=== PATIENT | female | born 1975 | race Caucasian/White ===

== ENCOUNTER 2020-05-30 09:40 | Outpatient (REF) | payer OTHER, SELFPAY ==
[2020-05-31 09:02] LABS: BV Int Neg Control Negative (Negative); BV Int Pos Control Positive (Positive)
== END 2020-05-30 09:41 | disposition home or self-care (01) ==
LOC: HO.LAB 09:40
PROVIDERS: PCP Internal Medicine; Visit Provider Advanced Practice Midwife
DX: Z01.419 Encounter for gynecological examination (general) (routine) without abnormal findings (principal)
CPT/HCPCS: 87480; 87510; 87660

== ENCOUNTER 2021-06-04 09:34 | Outpatient (REF) | payer OTHER, SELFPAY ==
[2021-06-05 15:43] LABS: BV Int Neg Control Negative (Negative); BV Int Pos Control Positive (Positive)
== END 2021-06-04 09:35 | disposition home or self-care (01) ==
LOC: HO.LAB 09:34
PROVIDERS: PCP Internal Medicine; Visit Provider Advanced Practice Midwife
DX: Z01.411 Encounter for gynecological examination (general) (routine) with abnormal findings (principal); N89.8 Other specified noninflammatory disorders of vagina; L68.0 Hirsutism
CPT/HCPCS: 87480; 87510; 87660

== ENCOUNTER 2022-07-01 08:59 | Outpatient (REF) | payer OTHER, SELFPAY ==
[2022-07-02 22:23] LABS: HPV mRNA E6/E7 rflx Not Detected (Not Detected)
== END 2022-07-01 09:00 | disposition home or self-care (01) ==
LOC: HO.LNP 08:59
PROVIDERS: PCP Internal Medicine; Visit Provider Advanced Practice Midwife
DX: Z01.419 Encounter for gynecological examination (general) (routine) without abnormal findings (principal); Z11.51 Encounter for screening for human papillomavirus (HPV); L68.0 Hirsutism
CPT/HCPCS: 87624; 88142

== ENCOUNTER 2023-06-16 09:33 | Outpatient (AMB) | payer OTHER, SELFPAY ==
--- NOTE | 2023-06-16 09:35 | A.OFFVIS_ITS ---
Intake Vital Signs 06/16/23 09:37 Height 5 ft 6 in Weight 225 lb BMI 36.3 BP 122/86 Intake Visit Reasons: Bleeding Intake Note: pt c/o bleeding with Mirena since 05/17/23 on and off Medical Records Clerk: Medical Records Clerk Present (Haley) Allergies No Known Allergies Allergy (Verified 06/16/23 09:37) Is last menstrual period known: Yes Last menstrual period: 05/17/23 HPI HPI Comments History of Present Illness Details She reports bleeding in ongoing since 05/17/23, less volume-light pink, then increased lst Wednesday, now slowing, the pain on the right has resolved. Self treated for yeast 3.5wks. ago, feels better. IUD placed for cycle control, inserted 2017, she does not usually have a menses at all. Concerned re: bloating and fullness after eating. She repots going to [facility] on 05/31/23 for evaluation-all STD bloodwork and cultures were negative. [facility] Surgical History Hx of section Family History Maternal Grandmother Breast cancer Social History Alcohol intake: current Alcohol intake frequency: a few times a month Patient Tobacco Use Status: Never used Tobacco Sexual orientation: Straight/Heterosexual Gender identity: Female Female Reproductive History Menstrual Age of Menarche: 16 Date of last menstrual period: 05/17/23 control method: progestin IUCD (mirena 07/12/17) Total pregnancies: 3 Full term: 3 Number of Living Children: 3 Date of last pap smear: 07/01/22 (neg pap and hpv) History of abnormal pap smear: Yes (hx abn pap and colpo) Review of Systems Const All systems reviewed & are unremarkable except as noted in HPI and below Physical Exam Vital Signs: Last Vital Signs BP 122/86 06/16/23 09:37 BMI result Body Mass Index 36.3 Const General: cooperative, healthy appearing and no acute distress Orientation/consciousness: patient oriented x3 GI Inspection: Yes normal to inspection Palpation (GI): Soft to palpation and Other GI palpation findings present (Nontender) Rectal Exam - Female: visual inspection normal General: Yes bladder normal to palpation External Female Exam: normal appearance of the urethra Speculum Exam - Vagina: normal appearance of the vagina, normal palpation, normal vaginal discharge and vaginal bleeding Speculum Exam - Cervix: normal appearance of the cervix, normal palpation and Other cervical findings present (IUD strings at the os) Bimanual exam- vagina & uterus: normal bimanual exam, normal palpation, uterine size normal, bladder normal to palpation, normal palpation, uterine shape normal and non-tender Bimanual Exam- Adnexa, other: normal adnexae OB/external & speculum: vaginal bleeding Neuro General: patient oriented x3 Results AMB Test Urine AMB Test Urine Negative Last Edit by WILLOW Weber on 06/16/23 09:46 Results Reviewed Results Reviewed: Laboratory Last Values Tst Clinic Negative 06/16/23 09:45 Assessment & Plan Assessment & Plan (1) IUD surveillance: Code(s): Z30.431 - Encounter for routine checking of intrauterine contraceptive device (2) Pelvic pain: Code(s): R10.2 - Pelvic and perineal pain Plan Discussed: Plan to obtain ultrasound, [facility] records, IUD exchange for Mirena at ultrasound follow-up advised if using it for heavy menstrual bleeding it would be only good therapeutically for 5 years. She is concerned about taking extra time off from work she does have her annual booked for July 14 2023. Advised separate appointment for the Mirena exchange in ultrasound follow-up, discussed pre-procedure medication with 3 Advil take it with food and hydrating well the day of her procedure. All of her questions and concerns were addressed to the best of my ability and shared decision making. She is agreeable to the plan of care. This note is constructed using voice recognition software. While every effort has been made to ensure accuracy, twisting department end finder errors may have been included. Orders: Orders AMB HCG Urine Test Today N92.1 - Excessive and frequent menstruation with irregular cycle, Z97.5 - Presence of (intrauterine) contraceptive device US pelvic and transvaginal Today R10.2 - Pelvic and perineal pain, Z30.431 - Encounter for routine checking of intrauterine contraceptive device Coding Level of Care Code Est Pt Level 4 (76878) Diagnoses IUD surveillance Z30.431 Pelvic pain R10.2
[2023-06-16 09:37] VITALS: BP 122/86; BMI 36.3
== END 2023-06-16 10:04 | disposition home or self-care (01) ==
LOC: HO.HWS 09:33
PROVIDERS: PCP Internal Medicine; Visit Provider Advanced Practice Midwife
DX: N92.1 Excessive and frequent menstruation with irregular cycle (principal); Z97.5 Presence of (intrauterine) contraceptive device; Z30.431 Encounter for routine checking of intrauterine contraceptive device; R10.2 Pelvic and perineal pain
CPT/HCPCS: 99214

== ENCOUNTER → 2023-06-16 09:33 | Outpatient (BNVA) | payer OTHER, SELFPAY | PROVIDERS: PCP Internal Medicine; Visit Provider Advanced Practice Midwife | DX: Z30.431 Encounter for routine checking of intrauterine contraceptive device (principal); R10.2 Pelvic and perineal pain | CPT/HCPCS: 81025 ==

== ENCOUNTER 2023-06-21 16:24 | Outpatient (REF) | payer OTHER, SELFPAY ==
--- NOTE | ~2023-06-21 | US_ITS ---
EXAMINATION: US PELVIS CLINICAL INFORMATION: Assessment of intrauterine device; the last menstrual period was on the prior month. COMPARISON: Pelvic ultrasound dated 09/04/2019. TECHNIQUE: Ultrasound of the pelvis is performed using both transabdominal and transvaginal transducers along with Doppler. Transvaginal imaging is performed due to inadequate visualization transabdominally. FINDINGS: Uterus: The uterus is anteverted and anteflexed. The uterus measures 10.5 x 5.0 x 7.3 cm. Nabothian cysts are seen within the cervix. The double wall endometrial thickness is 4 mm. An intrauterine device is seen, properly situated within the endometrial canal. The uterus is smooth in contour and has normal myometrial echogenicity. Within the upper rightward uterine body, 1.3 x 1.1 x 1.4 cm hypoechoic fibroid is seen. Adnexa: Both ovaries are visualized. There is normal color flow to the adnexa. There is no ovarian torsion. There is no pelvic ascites or fluid collection. Right ovary measures 3.8 x 2.8 x 3.0 cm, volume 1.7 mL. Left ovary measures 2.7 x 1.7 x 2.1 cm, volume 5.0 mL. US/US pelvic and transvaginal IMPRESSION: 1. A small right uterine fibroid is seen. 2. An intrauterine device is seen, properly situated within the endometrial canal. 3. Nabothian cysts are seen within the cervix.
== END 2023-06-21 16:25 | disposition home or self-care (01) ==
LOC: HO.US 16:24
PROVIDERS: PCP Internal Medicine; Visit Provider Advanced Practice Midwife
DX: Z30.431 Encounter for routine checking of intrauterine contraceptive device (principal); R10.2 Pelvic and perineal pain
CPT/HCPCS: 76830; 76856

== ENCOUNTER 2023-07-13 07:42 | Outpatient (AMB) | payer OTHER, SELFPAY ==
--- NOTE | 2023-07-13 07:46 | MHC.OFFVIS ---
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 Recent ultrasound June 22 for reviewed today. Doing well with no concerns. She tries to eat healthy, less exercise with her shoulder injury. Currently is not sexually active. Bleeding with the IUD has settled she has an exchange next month for the Mirena. Cultures are negative from [facility] in May. Mammogram completed at [facility] records not available today. She denies vaginal itching and irritation. Denies family history of ovarian or colon cancer. FH breast cancer/ Last pap smear 2022, negative. [facility] Medical History (Updated 07/13/23 @ 08:18 by Joya Bender CNM) Fibroid Surgical History Hx of section Family History Maternal Grandmother Breast cancer Social History Alcohol intake: current Alcohol intake frequency: a few times a month Patient Tobacco Use Status: Never used Tobacco Sexual orientation: Straight/Heterosexual Gender identity: Female Female Reproductive History Menstrual Age of Menarche: 16 control method: progestin IUCD (Mirena 06/2017) Total pregnancies: 3 Full term: 3 Number of Living Children: 3 Date of last pap smear: 07/01/22 (neg pap and hpv) History of abnormal pap smear: Yes (hx abn pap and colpo yrs ago no records) Date of Mammogram: 07/09/21 Review of Systems Const All systems reviewed & are unremarkable except as noted in HPI and below Reports as per HPI Eyes Reports no additional complaints ENT Reports no additional complaints Card Reports no additional complaints Resp Reports no additional complaints GI Reports as per HPI and Reports no additional complaints Reports as per HPI Musc Reports no additional complaints Skin/Breast Reports as per HPI Neuro Reports no additional complaints Psych Reports no additional complaints Endo Reports no additional complaints Tenzin/Lymph Reports no additional complaints Aller/Immun Reports no additional complaints Physical Exam Const General: cooperative, healthy appearing, no acute distress, well developed and alert Orientation/consciousness: patient oriented x3 HEENT Head: Yes normal to inspection Eyes General: appearance normal, both eyes and all related structures Neck Neck: Yes normal visual inspection Thyroid: Thyroid normal Chest Chest palpation & inspection: normal inspection of the chest and other (no puckering, dimpling, peau de orange, retraction, discharge, masses) Breast/axilla inspection: normal inspection of the breasts Breast/axilla palpation: normal palpation of the breasts Resp Effort & Inspection: normal respiratory effort GI Inspection: Yes normal to inspection Palpation (GI): Soft to palpation Rectal Exam - Female: deferred General: Yes bladder normal to palpation External Female Exam: normal external appearance and normal appearance of the urethra Speculum Exam - Vagina: normal appearance of the vagina, normal palpation and normal vaginal discharge Speculum Exam - Cervix: normal appearance of the cervix, normal palpation and Other cervical findings present (IUD strings present) Bimanual exam- vagina & uterus: normal bimanual exam, normal palpation, uterine size normal, bladder normal to palpation, normal palpation and non-tender Bimanual Exam- Adnexa, other: no masses Skin General skin exam: no rashes or lesions noted Rashes: no rashes Neuro General: patient oriented x3 Cognition (Neuro): normal cognition Extrem General: Yes normal to inspection Psych Attitude: cooperative Thought process: Normal thought process present Assessment & Plan Assessment & Plan (1) Encounter for well woman exam with routine gynecological exam: Code(s): Z01.419 - Encounter for gynecological examination (general) (routine) without abnormal findings (2) Fibroid: Code(s): D21.9 - Benign neoplasm of connective and other soft tissue, unspecified Category: Medical Plan Discussed: Current recommendations for pap smears per ASCCP guidelines. Counseled re: Leiomyoma: common pelvic neoplasm. Differential diagnosis-may include leiomyosarcoma which is a rare uterine sarcoma 3-7/100,000, difficult to distinguish from fibroids on ultrasound from uterine sarcoma's. Unlikely any single test will have a highly positive predictive value. Hysterectomy is not recommended for sole purpose of excluding malignant neoplasm. Report any AUB. Pelvic pressure, bloating, or pain. Consult for surgical exploration verses expectant management offered. Breast awareness and periodic breast exams. Maintain a healthy lifestyle including a well balanced diet and routine exercise. Use condoms for STI and prevention. Mammogram yearly. Option is send records from the [facility]. Colonoscopy >45, or at risk sooner, she reports she has a kit at home she has not done yet. Return to the office next month for an IUD exchange. Patient verbalizes understanding and agrees to the plan of care. She was given opportunity to ask questions and all questions were answered to the best of my ability. RTO in one year for annual lead tinner examination. This note is constructed using voice recognition software. While every effort has been made to ensure accuracy, burning supervisor errors may have been included.
[2023-07-13 07:48] VITALS: BP 116/72; BMI 36.2
== END 2023-07-13 08:18 | disposition home or self-care (01) ==
PROVIDERS: PCP Internal Medicine; Visit Provider Advanced Practice Midwife
DX: Z01.419 Encounter for gynecological examination (general) (routine) without abnormal findings (principal); D21.9 Benign neoplasm of connective and other soft tissue, unspecified
CPT/HCPCS: 99396

== ENCOUNTER → 2023-07-13 07:42 | Outpatient (BNVA) | payer OTHER, SELFPAY | PROVIDERS: PCP Internal Medicine; Visit Provider Advanced Practice Midwife ==

== ENCOUNTER 2023-07-27 08:02 | Outpatient (AMB) | payer OTHER, SELFPAY ==
[2023-07-27 08:13] VITALS: BP 110/74; BMI 36.2
--- NOTE | 2023-07-27 08:13 | MHC.OFFVIS ---
Vital Signs 07/27/23 08:13 Height 5 ft 6 in Weight 224 lb BMI 36.2 BP 110/74 Intake Visit Reasons: Mirena exchange/Ultrasound follow up Allergies No Known Allergies Allergy (Verified 07/27/23 08:13) HPI Comments Details: Patient is here today for a Mirena exchange. She is using it for cycle control, and is advised that the duration is for 5 years verses 8. [facility] Medical History (Updated 07/13/23 @ 08:18 by Joya Bender CNM) Fibroid Surgical History Hx of section Family History Maternal Grandmother Breast cancer Social History (Updated 07/13/23 @ 07:50 by WILLOW Weber) Alcohol intake: current Alcohol intake frequency: a few times a month Patient Tobacco Use Status: Never used Tobacco Sexual orientation: Straight/Heterosexual Gender identity: Female Female Reproductive History Menstrual Age of Menarche: 16 control method: progestin IUCD (Mirena IUD inserted 07/27/2023 for cycle control expires 5 years) Review of Systems Const All systems reviewed & are unremarkable except as noted in HPI and below Physical Exam Vital Signs: Last Vital Signs BP 110/74 07/27/23 08:13 BMI result Body Mass Index 36.2 Const General: cooperative, healthy appearing and no acute distress Orientation/consciousness: patient oriented x3 GI Inspection: Yes normal to inspection Palpation (GI): Soft to palpation and Other GI palpation findings present (Nontender) Rectal Exam - Female: visual inspection normal General: Yes bladder normal to palpation External Female Exam: normal appearance of the urethra Speculum Exam - Vagina: normal appearance of the vagina, normal palpation and normal vaginal discharge Speculum Exam - Cervix: normal appearance of the cervix, normal palpation and Other cervical findings present (IUD strings present) Bimanual exam- vagina & uterus: normal bimanual exam, normal palpation, uterine size normal, bladder normal to palpation, normal palpation, uterine shape normal and non-tender Bimanual Exam- Adnexa, other: normal adnexae Neuro General: patient oriented x3 Office Procedures IUD Insert/Removal Details [id number]-[id number] Insertion Procedure code (CPT) selection complete Contraception Insert/Removal Details Details: The patient is here today for a Mirena IUD removal/ reinsertion. She was counseled on the side effects including: menstrual cycle changes, pain, infection, bleeding, or expulsion. A urine test was completed and was negative. She was consented for the IUD insertion and has signed the consent form. All questions were answered. The patient was placed in the dorsal lithotomy position. A speculum was inserted vaginally and the cervix and strings were visualized at the os. A ring forcep was utilized, and the patient was asked to give a deep cough while the strings were grasped and gently tugged at the same time, removing the IUD device intact. A single toothed tenaculum was applied to the cervix for stabilization, and the uterus was sounded to 10 cm. The device was inserted and released with a gentle motion. Bleeding from the tenaculum sites and the procedure were minimal. The strings were trimmed to 3cm. All of the equipment was removed and the bimanual was normal, no tip was palpable at the cervical os. The patient tolerated the procedure well and left the office in good condition. Post IUD Insertion Care: There may be some post insertion bleeding for several days that is usually light and can turn to a light brown or pink in color. Mild cramping may occur. Nothing in the vagina including: tampons, douching or intimacy for several days. You may take an over the counter mild analgesia like Tylenol or Advil (if no allergies), per the manufacturers recommendations on dosing and frequency. Follow the directions completely. Call the office if any: fever (over 100.4), flu like symptoms, abdominal pain, worsening cramping not resolved with over the counter medications, foul smelling vaginal odor, signs of infected appearing discharge, or heavy bleeding. Use a condom for a back up method if indicated for 7 days. Always use a condom for STI prevention; IUD's are not protective against STD's. Return to the office in 4-6 weeks for IUD recheck. This note is constructed using voice recognition software. While every effort has been made to ensure accuracy, claims customer service representative errors may have been included. 24370 - Insertion and Removal Office Meds Mirena 21 mcg/24 hours (8 yrs) 52 mg intrauterine device Performing Provider: Joya Bender, CNM Performing Location: [facility] Administered by: WILLOW Weber on 07/27/23 08:41 Dose Route Admin Location Dispensed Lot Number Expiration Date [facility] [employer] 1 device intrauterine 1 device [id number] 11/19/25 [id number] [employer] Results AMB Test Urine AMB Test Urine Negative Last Edit by WILLOW Weber on 07/27/23 08:18 Results Reviewed Results Reviewed: Laboratory Last Values Tst Clinic Negative 07/27/23 08:18 Assessment & Plan Assessment & Plan (1) Encounter for IUD removal and reinsertion: Code(s): Z30.433 - Encounter for removal and reinsertion of intrauterine contraceptive device Plan See procedure notes Orders: Orders AMB HCG Urine Test Today Z32.02 - Encounter for test, result negative AMB IUD Insertion/Removal - Practice Supplied Today Z30.430 - Encounter for insertion of intrauterine contraceptive device CT NG by PCR Today Z20.2 - Contact with and (suspected) exposure to infections with a predominantly sexual mode of transmission Coding Level of Care Code Procedure Only Diagnoses Encounter for IUD removal and reinsertion Z30.433 CPT Codes Details - CPT: 79030-ODI Insertion ([id number]) Details - Contraception: 96943 - Insertion and Removal ([id number])
== END 2023-07-27 08:38 | disposition home or self-care (01) ==
PROVIDERS: PCP Internal Medicine; Visit Provider Advanced Practice Midwife
DX: Z30.433 Encounter for removal and reinsertion of intrauterine contraceptive device (principal); Z32.02 Encounter for pregnancy test, result negative
CPT/HCPCS: 58300; 58301

== ENCOUNTER 2023-07-27 08:02 | Outpatient (REF) | payer OTHER, SELFPAY ==
[2023-07-27 14:39] LABS: CT PCR NOT DETECTED (Not Detect.); NG PCR NOT DETECTED (Not Detect.)
== END 2023-07-27 08:03 | disposition home or self-care (01) ==
LOC: HO.LNP 08:02
PROVIDERS: PCP Internal Medicine; Visit Provider Advanced Practice Midwife
DX: Z30.433 Encounter for removal and reinsertion of intrauterine contraceptive device (principal); Z20.2 Contact with and (suspected) exposure to infections with a predominantly sexual mode of transmission
CPT/HCPCS: 0353U; 58300; 58301; 81025; J7298

== ENCOUNTER 2023-10-07 07:50 | Outpatient (AMB) | payer OTHER, SELFPAY ==
--- NOTE | 2023-10-07 07:57 | MHC.OFFVIS ---
Vital Signs 10/07/23 08:07 BP 108/70 Intake Visit Reasons: IUD check Allergies No Known Allergies Allergy (Verified 07/27/23 08:13) HPI Comments Details: Patient is here today for a follow up IUD check after recent insertion. She reports some small amount of bleeding, no pelvic pain PFSH Medical History (Updated 07/13/23 @ 08:18 by Joya Bender CNM) Fibroid Surgical History Hx of section Family History Maternal Grandmother Breast cancer Social History (Updated 07/13/23 @ 07:50 by WILLOW Weber) Alcohol intake: current Alcohol intake frequency: a few times a month Patient Tobacco Use Status: Never used Tobacco Sexual orientation: Straight/Heterosexual Gender identity: Female Female Reproductive History Menstrual Age of Menarche: 16 Review of Systems Const All systems reviewed & are unremarkable except as noted in HPI and below Reports as per HPI Eyes Reports no additional complaints ENT Reports no additional complaints Card Reports no additional complaints Resp Reports no additional complaints GI Reports as per HPI and Reports no additional complaints Reports as per HPI Musc Reports no additional complaints Skin/Breast Reports as per HPI Neuro Reports no additional complaints Psych Reports no additional complaints Endo Reports no additional complaints Tenzin/Lymph Reports no additional complaints Aller/Immun Reports no additional complaints Physical Exam Const General: cooperative, healthy appearing, no acute distress, well developed and alert General: Yes bladder normal to palpation External Female Exam: normal external appearance and normal appearance of the urethra Speculum Exam - Vagina: normal appearance of the vagina, normal palpation and normal vaginal discharge Speculum Exam - Cervix: normal appearance of the cervix, normal palpation and Other cervical findings present (IUD strings at os) Bimanual exam- vagina & uterus: normal bimanual exam, normal palpation, uterine size normal, bladder normal to palpation, normal palpation and non-tender Bimanual Exam- Adnexa, other: no masses Psych Attitude: cooperative Thought process: Normal thought process present Assessment & Plan Assessment & Plan (1) IUD surveillance: Code(s): Z30.431 - Encounter for routine checking of intrauterine contraceptive device Plan Discussed: Monitoring menstrual bleeding, most likely to taper off and results in random bleeding at times. Advised to report any heavy prolonged or unusual bleeding episodes or any pelvic pain, other concerns. All of her questions and concerns were addressed to the best of my ability and shared decision making. She is agreeable to the plan of care. This note is constructed using voice recognition software. While every effort has been made to ensure accuracy, wrapper selector errors may have been included. Coding Level of Care Code Est Pt Level 2 (25729) Diagnoses IUD surveillance Z30.431
[2023-10-07 08:07] VITALS: BP 108/70
== END 2023-10-07 08:32 | disposition home or self-care (01) ==
LOC: HO.HWS 07:50
PROVIDERS: PCP Internal Medicine; Visit Provider Advanced Practice Midwife
DX: Z30.431 Encounter for routine checking of intrauterine contraceptive device (principal)
CPT/HCPCS: 99212

== ENCOUNTER → 2023-10-07 07:50 | Outpatient (BNVA) | payer OTHER, SELFPAY | PROVIDERS: PCP Internal Medicine; Visit Provider Advanced Practice Midwife ==

== ENCOUNTER 2024-07-19 08:12 | Outpatient (AMB) | payer OTHER, SELFPAY ==
--- NOTE | 2024-07-19 08:17 | A.OFFVIS_ITS ---
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 Doing well with edger machine setter concerns: leakage of urine. Notes a rash on her neck when she gets upset. Mirena IUD user. No concerns w/IUD. Currently is occasionally sexually active. She denies vaginal itching and irritation. STI screening offered; she accepts. She tries to eat healthy, no regular exercise currently due to heel pain. Denies family history of breast, ovarian or colon cancer. Last pap smear 2022, negative. Mammogram: 2023. History of fibroid. [facility] Medical History IUD (intrauterine device) in place Fibroid Surgical History Hx of section Family History Maternal Grandmother Breast cancer Social History Alcohol intake: current Alcohol intake frequency: a few times a month Patient Tobacco Use Status: Never used Tobacco Sexual orientation: Straight/Heterosexual Gender identity: Female Female Reproductive History Menstrual Age of Menarche: 16 control method: progestin IUCD (mirena 07/27/23) Total pregnancies: 3 Full term: 3 Number of Living Children: 3 Date of last pap smear: 07/01/22 (neg pap and hpv) History of abnormal pap smear: Yes (hx abn pap and colpo yrs ago no records) Date of Mammogram: 03/09/24 (Birad 3) Review of Systems Const All systems reviewed & are unremarkable except as noted in HPI and below Reports as per HPI Eyes Reports no additional complaints ENT Reports no additional complaints Card Reports no additional complaints Resp Reports no additional complaints GI Reports as per HPI and Reports no additional complaints Reports as per HPI Musc Reports no additional complaints Skin/Breast Reports as per HPI Neuro Reports no additional complaints Psych Reports no additional complaints Endo Reports no additional complaints Tenzin/Lymph Reports no additional complaints Aller/Immun Reports no additional complaints Physical Exam Const General: cooperative, healthy appearing, no acute distress, well developed and alert Orientation/consciousness: patient oriented x3 HEENT Head: Yes normal to inspection Eyes General: appearance normal, both eyes and all related structures Neck Neck: Yes normal visual inspection Thyroid: Thyroid normal Chest Chest palpation & inspection: normal inspection of the chest and other (no puckering, dimpling, peau de orange, retraction, discharge, masses) Breast/axilla inspection: normal inspection of the breasts Breast/axilla palpation: normal palpation of the breasts Resp Effort & Inspection: normal respiratory effort GI Inspection: Yes normal to inspection and Yes scar Palpation (GI): Soft to palpation Rectal Exam - Female: deferred General: Yes bladder normal to palpation External Female Exam: normal external appearance and normal appearance of the urethra Speculum Exam - Vagina: normal appearance of the vagina, normal palpation and normal vaginal discharge Speculum Exam - Cervix: normal appearance of the cervix, normal palpation and Other cervical findings present (IUD strings at the os) Bimanual exam- vagina & uterus: normal bimanual exam, normal palpation, uterine size normal, bladder normal to palpation, normal palpation and non-tender Bimanual Exam- Adnexa, other: no masses Skin General skin exam: no rashes or lesions noted Rashes: no rashes Neuro General: patient oriented x3 Cognition (Neuro): normal cognition Extrem General: Yes normal to inspection Psych Attitude: cooperative Thought process: Normal thought process present Assessment & Plan Assessment & Plan (1) Encounter for annual routine gynecological examination: Code(s): Z01.419 - Encounter for gynecological examination (general) (routine) without abnormal findings Category: Medical (2) Fibroid: Code(s): D21.9 - Benign neoplasm of connective and other soft tissue, unspecified Category: Medical Plan: Counseled re: Leiomyoma: common pelvic neoplasm. Differential diagnosis-may include but not limited to- leiomyosarcoma which is a rare uterine sarcoma 3- 7/100,000, difficult to distinguish from fibroids on ultrasound from uterine sarcoma's. Unlikely any single test will have a highly positive predictive value. Hysterectomy is not recommended for sole purpose of excluding malignant neoplasm. Consult for surgical exploration, medical treatment, other treatments, verses expectant management, pros and cons, risks and benefits. Follow up for stability. Order placed. Plan tele visit follow up for test results. Report any AUB, pelvic pressure, bloating, or pain. Referral to MD if indicated for level of care if indicated. Plan Discussed: Current recommendations for pap smears per ASCCP guidelines. Breast awareness and periodic breast exams. Mammogram yearly. Release mammogram records from [facility] to have up-to-date follow up scans documented. Maintain a healthy lifestyle including a well balanced diet and routine exercise. Patient verbalizes understanding and agrees to the plan of care. She was given opportunity to ask questions and all questions were answered to the best of my ability. RTO in one year for annual edger machine setter examination. This note is constructed using voice recognition software. While every effort has been made to ensure accuracy, slip feeder errors may have been included. Orders: Orders US pelvic and transvaginal Today D21.9 - Benign neoplasm of connective and other soft tissue, unspecified Coding Level of Care Code Est Pt Prev Care 40-64y(82912) Diagnoses Encounter for annual routine gynecological examination Z01.419 Fibroid D21.9
[2024-07-19 08:19] VITALS: BP 104/60; BMI 38.7
--- OUTSIDE RECORDS SUMMARY | 2024-07-19 08:25 | XMS_ITS ---
Author Organization [facility] Address [address] [place] [address] Care Team Providers Care Fermenter Wine Name Role Phone Chetan Echavarria MD Primary Care Provider Teresa Benz Unavailable [phone] Allergies No Known Allergies REASON FOR VISIT Heel pain Medications Medication SIG (Take, Route, Fr equency, Duration) Notes Start Date End Date Status Physical Therapy . . . 2-3x/week for 3-4 weeks Active Ibuprofen 800 MG 1 tablet Orally Thre e times a day for 30 days 06/07/2024 Active Social History Tobacco Use: Social History Observation Description Date Details (start date - stop date) Never Smoker NA - NA Tobacco use other than smoking: Question Answer Notes Are you an other tobacco user? No Tobacco Control (Standard) Question Answer Notes Tobacco use: Nonsmoker Additional Findings: Tobacco non-user Current no nsmoker AUDIT-C (Standard) Question Answer Notes Did you have a drink containing alcohol in the p ast year? 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 and Short Achilles tendon (acquired), left ankle M67.02 Assessments Encounter Date Diagnosis (ICD Code) Assessment Notes Treatment Notes Treatment Clinical Notes Section Notes 06/07/2024 Achilles tendinitis of left lower extremity (ICD-10 - M76.62) Patient Educated with: HEEL CORD STRETCHES.pdf (HEEL CORD STRETCHES.pdf) Patient Educated with: RICE THERAPY.pdf (RICE THERAPY.pdf) 06/07/2024 Pain of left heel (ICD-10 - M79.672) 06/07/2024 Exostosis of left posterior calcaneus (ICD-10 - M77.32) 06/07/2024 Short Achilles tendon (acquired), left ankle (ICD-10 - M67.02) Plan Of Treatment Medication Medication Name Sig Start Date Stop Date Notes Physical Therapy . . . 2-3x/week for 3-4 weeks 06/07/2024 Ibuprofen 800 MG 1 tablet Orally Thre e times a day for 30 days 06/07/2024 Treatment Notes Assessment Notes Achilles tendinitis of left lower extrem ity Patient Educated with: HEEL CORD STRETCHES.pdf (HEEL CORD STRETCHES.pdf) Patient Educated with: RICE THERAPY.pdf (RICE THERAPY.pdf) Pending Test Test Name Order Date X ray : Foot, left 3V 06/07/2024 Next Appt Details Follow Up: 2 Months, Reason: Provider Name:Teresa krueger, 08/18/2024 01:30:00 PM, [address] [place] [address], [id number], Progress Notes * Socorro GARCIAOB:1975 (49 yo F)Acc No.[id number]:06/07/2024 Progress Notes Patient:?Mckinley GARCIA Provider:?Teresa Hadley DPM :1975???Age:49 Y???Sex:Female D ate:06/07/2024 Address:[address] [place], [place] [id number] Pcp:Chetan Echavarria MD Subjective: * Chief Complaints: * ???Heel pain * HPI: ???Heel pain:?Nature:?aching, tenderness, throbbing.?Location:?Back of heel, LEFT.?Duration:?, a year or more.?Onset/Cause:?gradual, denies trauma.?Course:?worse.?Aggravated:?standing, walking, walking first thing in the morning/after rest, work/job, worse at end of the day.?Treatments:?rest/alter normal daily activity, change in shoes, pre- fabricated orthoses.? * ROS:?General/Constitutional:?Nausea?denies.?Vomiting?denies.?Hunger Thirst?denies.?Loss appetite?denies.?Chills?denies.?Fatigue?denies.?Fever?denies.?Night Sweats?denies.?Unexplained weight loss?denies.?Unexplained weight gain?denies.?HEENTM:?Dentures?denies.?Dizziness?denies.?Glasses/contacts?admits.?Retinopathy?de nies.?Blurred/double vision?denies.?TMJ?denies.?Discharge/drainage?denies.?Implants?denies.?Sore throat?denies.?Dental implants?denies.?Hard of hearing ?denies.?Difficulty chewing/swallowing/speaking?denies.?Nose bleeds?denies.?Sore mouth?denies.?Respiratory:?On Oxygen?denies.?Pneumonia/pleurisy?denies.?Bronchitis?denies.?Emphysema?denies.?C oughing?denies.?Cough blood?denies.?Shortness of breath?denies.?Wheezing?denies.?Cardiovascular:?Pacemaker?denies.?MVP?denies.?WPW?denies.?CHF?denies.?Heart attack?denies.?Septal defect?denies.?Rapid beat?denies.?Chest pain ?denies.?Atrial Fib.?denies.?Murmur/Palpitations?denies.?Gastrointestinal:?Hemorrhoids?denies.?Stomach/Abdominal pain?denies.?Dark blood stool?denies.?Irritable bowel ?denies.?Constipation?denies.?Diarrhea?denies.?Hematology:?Swelling?denies.?Clots?denies.?Varicose Veins?denies.?Bruising?denies.?Bleeding problem?denies.?Genitourinary:?Blood urine?denies.?Frequent/Painfu/urination/bladder control?denies.?Kidney stones?denies.?Infection (UTI)?denies.?Nephropathy?denies.?sex trans dis (STD)?denies.?Prostate?denies.?Musculoskeletal:?Hammertoes?denies.?Bunions?denies.?Back Pain?denies.?Muscle Cramps/ Resting?denies.?Muscle cramps / walking?denies.?Generalized aches and pains?denies.?Weakness?denies.?Integ.:?Wisdom?denies.?Scars?denies.?Corns/calluses?denies.?Ingrown nails?denies.?Painful nails?denies.?Open Sores?denies.?Rashes?denies.?Neurologic:?Difficulty sleeping?denies.?Brain disorder?denies.?Numbness?denies.?Balance trouble?denies.?Confusion?denies.?Fainting/blackouts?denies.?Tingling?denies.?Tr emors?denies.? * Medical History:? * Surgical History:? * Hospitalization/Major Diagno stic Procedure:?Denies Past Hospitalization * Family History:?Mother: alibeni e, diagnosed with Other malignant neoplasm of unspecified site, Unspecified essential hypertension, Family history of arthritis.?Father: alive, diagnosed with Other malignant neoplasm of unspecified site, Diabetic - NIDDM, Unspecified essential hypertension, Unspecified heart disease.? * Social History:?Tobacco Use:?Tobacco use other than smoking?Are you an other tobacco user??No ?Tobacco Control (Standard)?Tobacco use:?Nonsmoker ?Additional Findings: Tobacco non-user?Current nonsmoker ???Drugs/Alcohol:?Drugs?Have you used drugs other than those for medical reasons in the past 12 months??No ???Miscellaneous:?Caffeine: yes, 1-2 cups per day. ?Children: yes, 3. ?Exercise: no. ?Marital status: . ?Occupation: Works Full-time- [employer] / [employer]. ???Drug/Alcohol:?AUDIT-C (Standard)?Did you have a drink containing alcohol in the past year??No ?Points?0 ?Interpretation?Negative * Medications:?None * Allergies:?N.K.D.A.yes[Aller gies Verified] Objective: * Vitals:?Ht:5 ft 6 in, Wt:230 , BMI:37.12, Shoe size:9-9.5, BP:120/80mm Hg, Ht-cm: 167.64 cm, Wt-k.33 kg. * Examination: ???Heel Pain: ?INSPECTION:?Pain on palpation to Posterior Superior Aspect Calcaneus,Pain on palpation to Achilles tendon/bursa with inflammation and swelling present,Prominent posterior and posterior/superior heel present, LEFT foot,Neg [place], Equinus contracture knee extended.?X-Rays - IMAGING REPORT: ?Clinical Indication(s):? Evaluate for Fracture, Evaluate Biomechanical Deformity.?Views:?3 views of Foot, LAT, LO, MO, LEFT??Taken by trained?Podiatric Meter Repair Shop Supervisor (?EF).?Findings:?normal bone and soft tissue density consistent for patients age and sex, increase in soft tissue contour and density at the symptomatic site, navicular/cuneiform plantar subluxation with anterior cyma line, positive retrocalcaneal exostosis, no coalitions identified, positive infra-calcaneal exostosis.?Fracture:?Negative fractures identified.?Orthopedic: ?GAIT ABNORMALITY:?antalgic.?FOOT MORPHOLOGY:? Decreased Ankle joint dorsiflexion ROM, knee extended.?Neurological: ?SENSORY:?Neurological exam reveals intact sensorium, pain sensation normal, vibration sensation intact, pinprick sensation is normal in the lower extremities, Pt denies, anesthesia, burning, paresthesia, tingling, B/L.?General Examination: ?GENERAL APPEARANCE:?Reveals a pleasant, alert, well nourished, well- developed, well hydrated individual, who demonstrates proper attention to hygiene/body habitus, and is in no acute distress, Pt serves as own historian for office visit today.?ORIENTED:?person, place, and time.?Vascular: ?DP PULSES (B):?3/4, B/L.?PT PULSES (B):?3/4, B/L.?CAPILLARY FILL TIME:?immediate, all digits, B/L.?TROPHIC CONDITION-TEXTURE/ELASTICITY/TURGOR/HAIR GROWTH (B):?normal, B/L.?TEMPERTURE GRADIENT (C):?normal, warm to cool, proximal to distal, B/L, B/L.?PIGMENTATION:?normal, B/L.?Dermatologic: ?SKIN FINDINGS:?Skin exam reveals normal color, texture, elasticity, and turgor. There are no masses, nor excrescences. The interspaces are clear, B/L.? 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 Plan: * Treatment: 2.?Pain of left heel?Imaging: X ray : Foot, left 3V * Procedure Codes:?83486 X-RAY EXAM OF LEFT FOOT 3V, Modifiers: 26 , LT * Preventive Medicine:? ??Counseling:?Discussion:?-04: Office or other outpatient visit for the evaluation and management of a new patient, which required a medically appropriate history and/or examination and MODERATE level of DECISION MAKING for: 1 OR MORE CHRONIC PROBLEM(S) THATS WORSENING, 2 STABLE CHRONIC PROBLEMS, A NEWLY DIAGNOSED PROBLEM WITH UNCERTAIN PROGNOSIS, AN ACUTE COMPLICATED INJURY WITH MULTIPLE TREATMENT OPTIONS, OR AN ACUTE PROBLEM WITH ACCOMPANYING SYSTEMIC SYMPTOMS, THAT POSE(S) A MODERATE RISK OF MORBIDITY. THIS CONDITION MAY ALSO INCLUDE RX DRUG MANAGEMENT, OR A DECISON FOR MINOR SURGERY. The visit on the day of the encounter encompassed interpreting the data and educating the patient as to the nature of their condition, treatment options available according to their individual PMH, meds, allergies, and overall health/living conditions, as well as any potential risks or complications that may occur from a failure to adhere to, and participate in, the recommended course of therapy. The discussion included a complete verbal, and/or written explanation of the examination results, any x-rays taken, the proposed diagnosis, and outline of the treatment plan. A schedule for future care needs was also explained. The patient verbalized an understanding of the instructions at this time and agreed to be an active participant in their treatment. If the patient should think of any questions or concerns after the visit, I have encouraged the patient to call the office.?Heel pain:?ACHILLES: I explained to the patient the possible etiologies of Achilles Tendonitis including foot type/shoegear/activity level/exercise routine and the risks/benefits of all the different treatment options for pain including: No treatment at all, Rest, Ice, NSAIDs(only if well tolerated after meals), New/supportive Shoegear, Strappings and Tapings, Stretching exercises, Deep Tissue Massage, Heel cups/cushions, Arch support/shoe inserts, Custom orthoses, Topical analgesics including Aspercream/Voltaren gel, Night splint/AFO Bracing for stiffness, Cast boot with crutches/cane/or walker for assisted ambulation, Physical Therapy, EPAT/ESWT, Interfil injection therapy, as well as surgical [place]/Calcanectomy- tendon debridement surgical procedures if needed. Recommendations were made to limit barefoot walking, eliminate wearing nonsupportive shoegear (i.e. flip-flops or sandals, or a shoe with an easily bendable, foldable, or twistable sole) and wear shoegear with a good solid sole, a supportive arch, and plenty of room for an insert/orthotic if necessary. If wearing sandals was required by the patient, we recommended orthopedic sandals such as Orthoheel or Birkenstock even while in the home. If the patient wore heels in the past, we recommended they continue, but eliminate the use of flats. The advantages and disadvantages of each option were discussed and the patients' questions re: shoegear, custom vs prefabricated inserts, activity level, PO vs Topical medications (and their respective potential complications/drug interactions/side effects), and consistency in home treatment regimens for optimal success were answered to their verbally confirmed satisfaction. Literature detailing Achilles Tendonitis and the various treatment options were dispensed and reviewed.?Orthotics:?I explained to the patient the benefits of OT use. I explained that orthoses are medically necessary to decrease the foot pain through proper mechanical control, support of their foot.?P.R.I.C.E.:?The patient was counseled on the use of P.R.I.C.E. and NSAIDS (if well tolerated) to aid in the recovery from their painful condition.?Shoe Gear Counseling:?The patient and I reviewed the types of shoes they should be wearing. My recommendation included obtaining a well-fitted shoe with a good supportive, non-foldable nor twistable sole, plenty of toe/room for the forefoot, and proper arch support. Based on todays examination, I recommended the patient look for new shoes, by having their feet professionally measured. We discussed that generally the best time of the day for a shoe fitting is the afternoon. Different shoes types and brands to best match the patients occupation and vocation were discussed. Specific brand selection will be up to the patient, their individual foot condition/deformities, and fit. The patient and I reviewed the standard new shoe break in period by wearing them for a few hours a day while checking for redness or sores as wear time is increased. The patient verbally confirmed to understanding the information discussed.?Stretching Exercises:?Stretching and deep tissue massage exercises for the patients injury/diagnosis were discussed and demonstrated, Handouts were also given.?X-rays:?Discussed and reviewed the X-rays with the patient. We discussed how the findings relate to the patients symptoms/complaints. Answered any and all questions..? ??Screening/Special Tests:?Fall Risk?Screening:?No falls in the past year ?FALLS: Screening for Future Fall Risk?Have you had any falls with injury in the past year??No * Follow Up:?2 Months * Images: * Sign off status: Completed true * Provider:?Teresa Hadley DPM Date:? Generated for Gwendolyn shultz/Agueda/Dave on:?07/19/2024 08:24 AM EDT History and Physical Notes * HPI (History of Present Illness) Category Sub-Category Detail Notes Category Not es Heel pain Duration: , a year or more Nature: aching, tenderness, throbbing Location: Back of heel, LEFT Onset/Cause: gradual, denies trau ma Aggravated: standing, walking, w alking first thing in the morning/after rest, work/job, worse at end of the day Course: worse Treatments: rest/alter normal da sabino activity, change in shoes, pre-fabricated orthoses Examination Category Sub-Category Detail Notes Category Not es Neurological SENSORY: Neurological exa m reveals intact sensorium, pain sensation normal, vibration sensation intact, pinprick sensation is normal in the lower extremities, Pt denies, anesthesia, burning, paresthesia, tingling, B/L Dermatologic SKIN FINDINGS: Skin exam reveal s normal color, texture, elasticity, and turgor. There are no masses, nor excrescences. The interspaces are clear, B/L Orthopedic GAIT ABNORMALITY: antalgic FOOT MORPHOLOGY: Decreased Ankle join t dorsiflexion ROM, knee extended General Examination GENERAL APPEARANCE: Reveals a pleasant, alert, well nourished, well-developed, well hydrated individual, who demonstrates proper attention to hygiene/body habitus, and is in no acute distress, Pt serves as own historian for office visit today ORIENTED: person, place, and t fred Vascular DP PULSES (B): 3/4, B/L PT PULSES (B): 3/4, B/L CAPILLARY FILL TIME: immediate, all digi ts, B/L TEMPERTURE GRADIENT (C): normal, warm to cool, proximal to distal, B/L, B/L TROPHIC CONDITION-TEXTURE/ELASTICITY/TURGOR/HAIR GROWTH (B): normal, B/L PIGMENTATION: normal, B/L X-Rays - IMAGING REPORT Findings: normal b one and soft tissue density consistent for patients age and sex, increase in soft tissue contour and density at the symptomatic site, navicular/cuneiform plantar subluxation with anterior cyma line, positive retrocalcaneal exostosis, no coalitions identified, positive infra-calcaneal exostosis Fracture: Negative fractures i dentified Views: 3 views of Foot, LAT , LO, MO, LEFT Taken by trained Podiatric Meter Repair Shop Supervisor ( EF) Clinical Indication(s): Evaluate for Fra cture, Evaluate Biomechanical Deformity Heel Pain INSPECTION: Pain on palpatio n to Posterior Superior Aspect Calcaneus, Pain on palpation to Achilles tendon/bursa with inflammation and swelling present, Prominent posterior and posterior/superior heel present, LEFT foot, Neg [place], Equinus contracture knee extended
--- OUTSIDE RECORDS SUMMARY | 2024-07-19 08:25 | XMS_ITS | Patient Health Record ---
Author Organization [facility] pia Bieber Address [address] [place] [address] Care Team Providers Care Regional Sales Engineer Name Role Phone Chetan Echavarria MD Primary Care Provider Teresa Benz Unavailable [phone] Allergies No Known Allergies Reason For Referral No Information Medications Medication SIG (Take, Route, Fr equency, Duration) Notes Start Date End Date Status Physical Therapy . . . 2-3x/week for 3-4 weeks Active Ibuprofen 800 MG 1 tablet Orally Thre e times a day for 30 days 06/07/2024 Active Immunizations Vaccine Route Administration Date Status Comme nts COVID-19 Pfizer BioNTech Vaccine Unknown 05/31/2020 Administered Second Dose: Social History Tobacco Use: Social History Observation [...] No Points 0 Interpretation Negative Vital Signs Blood pressure diastolic 80 mm Hg 06/07/2024 Height 5 ft 6 in in 06/07/2024 Blood pressure systolic 120 mm Hg 06/07/2024 Weight 230 lbs 06/07/2024 BMI 37.12 kg/m2 06/07/2024 Encounters Encounter Location Date 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 and Short Achilles tendon (acquired), left ankle M67.02 Assessments Encounter Date Diagnosis (ICD Code) Assessment Notes Treatment Notes Treatment Clinical Notes Section Notes 06/07/2024 Pain of left heel (ICD-10 - M79.672) 06/07/2024 Achilles tendinitis of left lower extremity (ICD-10 - M76.62) Patient Educated with: HEEL CORD STRETCHES.pdf (HEEL CORD STRETCHES.pdf) Patient Educated with: RICE THERAPY.pdf (RICE THERAPY.pdf) 06/07/2024 Exostosis of left posterior calcaneus (ICD-10 - M77.32) 06/07/2024 Short Achilles tendon (acquired), left ankle (ICD-10 - M67.02) Plan Of Treatment Pending Test Test Name Order Date X ray : Foot, left 3V 06/07/2024 X ray : Foot, right 3V 09/17/2020 Next Appt Details Provider Name:Teresa Krueger Crys krueger, 08/18/2024 01:30:00 PM, [address] [place], [address], Insurance Providers Payer Name Payer Address Payer Phone Subscriber Number Group Number Insured Name Patient Relationship to Insured Coverage Start Date Coverage End Date [facility] [address] [place] [address] [phone] [id number] Loco Gregg Spouse - patient is the spouse of the insured Medical (General) History Medical History History ICD Code Chicken pox Warts covid-19 Surgical History Surgery Date(Month/Year)
--- OUTSIDE RECORDS SUMMARY | 2024-07-19 08:25 | XMS_ITS | Data Portability ---
Author Organization [facility], Allergy Address [address] [place] [address] Care Team Providers Care Supervisor Offset Plate Preparation Name Role Phone MALGORZATA GARDNER Primary Care Provider Assessment Encounter Date Assessment Date Assessment LastModified by Organization Details LastModified Time 11/15/2023 11/15/2023 48-year-old female presents for cerumen removal. Cerumen impaction removed bilaterally. Bilateral TMs are intact. Follow up in 6 months for cerumen removal, or sooner if any concerns arise. Patient with acute BPPV that is resolving. We discussed referral to vestibular therapy, but she is not interested at this time. kelli Not available 11/15/2023 09:51:49 05/18/2024 05/18/2024 49-year-old female presents for cerumen removal. Cerumen impaction removed bilaterally. Bilateral TMs are intact. Follow up in 6 months for cerumen removal, or sooner if any concerns arise. [email or web address] Not available 05/18/2024 09:06:10 Plan of Treatment Reminders Order Date Submit Date Provider Last Modified By Organization Details Last Modified Time Details Appointments Establish ed 15 2024 09:45A M HUGO MANDUJANO PA-C Not available Not available Not available Lab None recorded. Referral None recorded. Procedures None recorded. Surgeries None recorded. Imaging None recorded. Medication Orders None recorded. Patient TargetsNo targets recorded. Patient InstructionsNo instructions recorded. Reason for Referral None Reported. Results Created Date Observation Date Name Description Value Unit Range Abnormal Flag Note LastModifiedBy Organization Detail LastModifiedTime 11/09/19 24 06/15/2018 imagi ng/di agnos tic resul t No observ ation record ed. [email or web address] Not Available 20:12:02 Result Notes None recorded. Problems Name Problem SNOMED Code Status Onset Date Resolution Date Notes Provider Name and Address Organization Details Recorded Time Dizziness and giddiness 180161070 Active 2018 [facility] [employer] gidd[facility] ; Note: Date Diagnosed : 06/15/2018 3:33 PM (R42) Not Available [facility] 4 02:49:01 Acute eczematoi d otitis externa 22821317 Active 2020 Acute eczematoi d otitis externa, left ear; Note: Date Diagnosed : 04/02/2020 9:05 AM (H60.542) Not Available [facility] 4 02:49:02 Otitis externa of left ear 17657600649 62107 Active 2018 Other otitis externa, left ear; Note: Date Diagnosed : 12/15/2018 8:56 AM (H60.8X2) Not Available [facility] 4 02:49:01 Impacted cerumen in right ear 50063294725 42942 Active 2020 Impacted cerumen, right ear; Note: Date Diagnosed : 09/03/2020 11:44 AM (H61.21) Not Available [facility] 4 02:48:58 Impacted cerumen of bilateral ears 22464379764 85092 Active 2018 Impacted cerumen, bilateral ; Note: Date Diagnosed : 12/15/2018 8:54 AM (H61.23) Not Available [facility] 4 02:49:01 Benign paroxysma l positiona l vertigo 405521942 Active 2023 ESPERANZA MISTRY MD [address] [facility],[place] [address], [facility] [place], [address] , [facility] 4 12:18:08 Problem Notes None recorded. Procedures Surgical History Date Name Laterality Status Provider Name and Address Organization Details Recorded Time 5 Cerumen removal without microscope bilat completed HUGO MANDUJANO PA-C [address] [facility],[place] [address], [place], [address], [facility] 05/18/2024 09:05:55 4 Cerumen removal without microscope bilat completed HUGO MANDUJANO PA-C [address] [place] [address], [phone], [facility] 11/15/2023 09:04:30 Imaging Results Imaging Date Name Status LastModified by Organiz ation Details LastModified Time 06/15/2018 imaging/diag nostic result completed [email or web address] Information not available 11/09/2023 20:12:02 Procedure Notes None recorded. Medical Equipment None Reported. Medications Name Sig Start Date Stop Date Status Note LastModified by Organization Details LastModified Time clotrimaz ole 10 mg hillary 1 hillary in mouth 12/27 completed Medicatio n ID: [id number] Du ration Value: 14 Prescrib ed By Name: Katty more MD Brand Name: clotrimaz ole Send Method: E-Prescri bed Subs Allowed: subs OK Medica tionGener icName: clotrimaz ole Not Available Not Available Not Available clotrimaz ole-betam ethasone 1 %-0.05 % lotion a small amount 2020 active Medicatio n ID: [id number] Du ration Value: 14 Prescrib ed By Name: VASILIY Pablo Name: clotrimaz ole-betam ethasone Send Method: E-Prescri bed Subs Allowed: subs OK Specia l Instructi on: Apply with finger to ear canal skin. Med icationGe nericName : clotrimaz ole-betam ethasone Not Available Not Available Not Available valacyclo vir 500 mg tablet TAKE 1 TABLET BY MOUTH TWICE DAILY FOR 3 DAYS FOR COLD SORES active Not Available Not Available No t Available clotrimaz ole-betam ethasone 1 %-0.05 % topical cream 2021 active Medicatio n ID: [id number] Du ration Value: 14 Brand Name: clotrimaz ole-betam ethasone Send Method: E-Prescri bed Subs Allowed: subs OK Specia l Instructi on: Apply a small amount with fingertip to affected ear twice daily as needed for itching M edication GenericNa me: clotrimaz ole-betam ethasone Not Available Not Available Not Available clotrimaz ole 1 % topical solution 2018 active Medicatio n ID: [id number] Pr escribed By Name: Katty more MD Brand Name: clotrimaz ole Send Method: E-Prescri bed Subs Allowed: subs OK Specia l Instructi on: 5 drops to affected ear twice a day Medic ationGene ricName: clotrimaz ole Not Available Not Available Not Available naproxen 500 mg tablet TAKE 1 TABLET BY MOUTH TWICE DAILY NEEDED FOR PAIN active Not Available Not Available No t Available DermOtic Oil 0.01 % ear drops 5 drop 2019 active Medicatio n ID: [id number] Pr escribed By Name: Katty more MD Brand Name: DermOtic Oil Send Method: E-Prescri bed Subs Allowed: subs OK Medica tionGener icName: DermOtic Oil Not Available Not Available Not Available Vitals Date Recorded Body height Body mass index (BMI) Body weight Provider Name and Address Organization Details Last Updated DateTime 11/15/2023 167.64 cm 37.1 kg/m2 608528.25 g Aura Dutta [facility] 11/15/2023 09:19:36 Date Recorded Body height Body mass index (BMI) Body weight Provider Name and Address Organization Details Last Updated DateTime 05/18/2024 167.64 cm 37.1 kg/m2 040293.25 g Lian Gannon [facility] 05/18/2024 09:13:14 Social History None recorded. Functional Status None recorded. Mental Status None recorded. Family History Nothing Reported. Medical History No medical history recorded. Gynecological HistoryNo gynecological history recorded. Obstetrics History GPAL:G 0 P 0 0 0 0 Past Encounters Encounter ID Performer Location Encounter Start Date Encounter Closed Date Diagnosis/Indication Diagnosis SNOMED-CT Code Diagnosis ICD10 Code Diagnosis Note [id number] ESPERANZA MISTRY MD [facility] [address] [address] 11/15/2023 09:02:24 11/15/2023 09:38:46 Impacted cerumen of bilateral ears 0549988529 098287 H61.23 Benign par oxysmal positional vertigo 276215028 H81.10 [id number] KATTY RUANO MD [facility] [address] [place] [address] 05/18/2024 08:57:43 05/18/2024 10:01:06 Impacted cerumen of bilateral ears 2637196523 346268 H61.23 Health Concerns Section Related Observation LastModified by Organization Detai ls LastModified Time None Recorded Concern Status LastModified by Organization Details LastModified Time None Recorded Advance Directives Directive None Recorded Payers Encounter Date Sequence Insurance Name Policy Number Policy Alonso Covered Member ID Alonso Member ID Guarantor Name 11/15/2023 1 [facility] [id number] 1 Mckinley Gregg [id number] Mckinley Gregg 05/18/2024 1 [facility] [id number] 1 Mckinley Gregg [id number] Mckinley Gregg Notes Date Note Type Note Provider Name and Address Organization Details Recorded Time 11/15/2023 text/html 48-year-old female presents for cerumen removal. Had an episode of vertigo when she woke up in the morning with positional changes of the head. Symptoms are improving. No prior vestibular therapy. Denies otalgia, otorrhea, or changes in her hearing. ESPERANZA WATSON MD [address] [place] [address], [phone], [facility] 11/15/2023 12:18:24 05/18/2024 text/html 49-year-old female presents for cerumen removal. No concerns today. KATTY RUANO MD [address] [place] [address], [address], [facility] 05/18/2024 13:34:27 OBGyn Episode No OBEpisode recorded.
== END 2024-07-19 08:51 | disposition home or self-care (01) ==
LOC: HO.HWS 08:13
PROVIDERS: PCP Internal Medicine; Visit Provider Advanced Practice Midwife
DX: Z01.419 Encounter for gynecological examination (general) (routine) without abnormal findings (principal)
CPT/HCPCS: 99396; 99459

== ENCOUNTER → 2024-07-19 08:12 | Outpatient (BNVA) | payer OTHER, SELFPAY | PROVIDERS: PCP Internal Medicine; Visit Provider Advanced Practice Midwife ==

== ENCOUNTER 2024-08-07 13:49 | Outpatient (REF) | payer OTHER, SELFPAY ==
--- NOTE | ~2024-08-07 | US_ITS ---
EXAMINATION: US PELVIS TRANSABDOMINAL AND TRANSVAGINAL HISTORY: D21.9 - Benign neoplasm of connective and other soft tissue, unspecified COMPARISON: Comparison is made with the prior examination dated 06/21/2023. TECHNIQUE: Transabdominal and endovaginal real-time 2D valdez-scale ultrasound was performed. FINDINGS: Uterus: The uterus is normal in size, measuring 10.2 x 5.5 x 6.3 cm. Myometrium has a normal echotexture. Again seen is a right-sided fibroid measuring 1.6 x 1.5 x 1.8 cm (previously 1.3 x 1.1 x 1.4 cm). Endometrium: The endometrial stripe measures 6 mm in thickness. An IUD is noted in appropriate position in the endometrial cavity. Right ovary: The right ovary measures 3.3 x 2.0 x 1.8 cm. The right ovary is normal in size and echotexture. Left ovary: The left ovary measures 3.8 x 2.6 x 2.9 cm. The left ovary is normal in size and echotexture. Pelvic fluid: none. US/US pelvic and transvaginal IMPRESSION: 1.6 x 1.5 x 1.8 cm right-sided uterine fibroid. IUD in appropriate position in the endometrial cavity. Electronically signed by: Carmelo Zhu MD 08/07/2024 02:33 PM EDT
--- OUTSIDE RECORDS SUMMARY | 2024-08-07 13:54 | XMS_ITS | Patient Health Record ---
Author Organization [facility] Address [address] [place] [phone] Care Team Providers Care Wellness Coordinator Name Role Phone BERNARD LÓPEZ Unavailable [phone] LINDA VELIZ Unavailable [phone] BETTYE PINO Unavailable [phone] Allergies No Known Allergies Results Component Value Reference Range Notes Ct/GC HONG, Pharyngeal-[id number] Reviewed date:05/11/2024 09:51:48 AM Interpretation:Negative Performing Lab:[facility] [place], [address], [address], [employer], Phone - [phone], Director - [facility] Notes/Report: Clinical Information:SRC:URINE C. trachomatis, HONG, Pharyn Negative Negative N. gonorrhoeae, HONG, Pharyn Negative Negative Ct, Ng, Trich vag by HONG-183 160 Reviewed date:05/11/2024 09:52:13 AM Interpretation:Negative Performing Lab:[facility] [place], [address], [address], [employer], Phone - [phone], Director - [facility] Notes/Report: Clinical Information:SRC:URINE Chlamydia by HONG Negative Negative Gonococcus by HONG Negative Negative Trich vag by HONG Negative Negative HIV Ab/p24 Ag with Reflex-08 [id number] Reviewed date:05/11/2024 09:55:28 AM Interpretation:Negative Performing Lab:[facility] [place], [address], [address], [employer], Phone - [phone], Director - [facility] Notes/Report: Clinical Information:SRC:URINE HIV Ab/p24 Ag Screen Non Reactive Non Reactive HIV-1/HIV-2 antibodies and HIV-1 p24 antigen were NOT detected. There is no laboratory evidence of HIV infection. HIV Negative T pallidum Screening Iron -[id number] Reviewed date:05/11/2024 09:57:55 AM Interpretation:Negative Performing Lab:[facility] [place], [address], [address], [place], Phone - [phone], Director - [facility] Notes/Report: Clinical Information:SRC:URINE T pallidum Antibodies Non Reactive Non Reactive Hepatitis B Surf Ab Quant-00 6530 Reviewed date:05/11/2024 09:52:59 AM Interpretation:Immune Performing Lab:[facility] [place], [address], [place], Phone - [phone], Director - [facility] Notes/Report: Clinical Information:SRC:URINE Hepatitis B Surf Ab Quant 36.7 Immunity>10 mIU /mL Status of Immunity Anti-HBs Level Inconsistent with Immunity 0.0 - 10.0 Consistent with Immunity >10.0 HBsAg Screen-139145 Reviewed date:05/11/2024 09:53:11 AM Interpretation:Negative Performing Lab:[facility] [place], [address], [address], [employer], Phone - [phone], Director - [facility] Notes/Report: Clinical Information:SRC:URINE HBsAg Screen Negative Negative HCV Antibody-[id number] Reviewed date:11/18/2023 12:36:43 PM Interpretation:Non-reactive Performing Lab:[facility] [place], [address] [place] [address], Phone - [phone], Director - [facility] Notes/Report: Hep C Virus Ab Non Reactive Non Reactive HCV antibody alone does not differentiate between previously resolved infection and active infection. Equivocal and Reactive HCV antibody results should be followed up with an HCV RNA test to support the diagnosis of active HCV infection. Ct/GC HONG, Pharyngeal-[id number] Reviewed date:11/19/2023 09:37:54 AM Interpretation:Negative Performing Lab:[facility] [place], [address], [address], [employer], Phone - [phone], Director - [facility] Notes/Report: C. trachomatis, HONG, Pharyn Negative Negative N. gonorrhoeae, HONG, Pharyn Negative Negative Trich vag by HONG-[id number] Reviewed date:11/19/2023 09:37:44 AM Interpretation:Negative Performing Lab:[facility] [place], [address], [address], [place], Phone - [phone], Director - [facility] Notes/Report: Trich vag by HONG Negative Negative HIV Ab/p24 Ag with Reflex-08 3935 Reviewed date:11/18/2023 12:36:54 PM Interpretation:Non-reactive Performing Lab:[facility] [place], [address] [facility], Phone - [phone], Director - [facility] Notes/Report: HIV Ab/p24 Ag Screen Non Reactive Non Reactive HIV-1/HIV-2 antibodies and HIV-1 p24 antigen were NOT detected. There is no laboratory evidence of HIV infection. HIV Negative T pallidum Screening Iron -468162 Reviewed date:11/18/2023 12:37:06 PM Interpretation:Non-reactive Performing Lab:[facility] [place], [address] [facility], Phone - [phone], Director - [facility] Notes/Report: T pallidum Antibodies Non Reactive Non Reactive Chlamydia/GC Amplification-1 60202 Reviewed date:11/19/2023 09:38:04 AM Interpretation:Negative Performing Lab:[facility] [place], [address], [address], [place], Phone - [phone], Director - [facility] Notes/Report: Chlamydia trachomatis, HONG Negative Negative Neisseria gonorrhoeae, HONG Negative Negative Reason For Referral No Information Medications Medication SIG (Take, Route, Frequency, Duration) Notes Start Date End Date Status Mirena Placed at [employer] OFFICER provider's in 2019 Active Social History Sex Assigned At : Social History Observation Description Sex Assigned At Female Section Notes: Aptima/ bw Vital Signs Blood pressure diastolic 78 mm Hg 05/03/2024 Height 5'6 in 05/03/2024 Blood pressure systolic 132 mm Hg 05/03/2024 Weight 242.5 lbs 05/03/2024 BMI 39.14 kg/m2 05/03/2024 Encounters Encounter Location Date Provider Diagnosis [facility] [address] [facility] [address] [place], [place] [id number] 11/17/2023 BERNARD LÓPEZ Encounter for screen ing for infections with a predominantly sexual mode of transmission Z11.3 ; Counseling, unspecified Z71.9 ; Other problems related to lifestyle Z72.89 ; Encounter for screening for human immunodeficiency virus [HIV] Z11.4 and Encounter for screening for other viral diseases Z11.59 [place] [facility] [address] [place] [phone] 05/03/2024 BETTYE PINO Encounter for screen ing for infections with a predominantly sexual mode of transmission Z11.3 ; Counseling, unspecified Z71.9 ; Other problems related to lifestyle Z72.89 ; HIV Screening Z11.4 and Encounter for screening for other viral diseases Z11.59 Assessments Encounter Date Diagnosis (ICD Code) Assessment Notes Treatment Notes Treatment Clinical Notes Section Notes 11/17/2023 Encounter for screening for infections with a predominantly sexual mode of transmission (ICD-10 - Z11.3) Spent 10 minutes doing the following : Chart Prep Obtaining /reviewing HPI Reports 2 mos relationship ,ended early September 2023 UPI ,aware of test accuracy All tests collected Urged 100% safer sex /condoms in future Happy with Mirena IUD Visit documented . 05/03/2024 Encounter for screening for infections with a predominantly sexual mode of transmission (ICD-10 - Z11.3) Discussed STI risks, screenings that are available through [facility] and safe sex. For Hep B screening today. Clt aware of lab processing times and how to view results on portal and how positive results will be communicated Need 2 out of 3 Sections from A-C Section A) Problems (only need one from below) One acute or uncomplicated illness/injury Section B) Data (at least one of the following categories in this section) Category 1: (Choose 2 of the following): Order unique tests Section C) Risk Document low risk of morbidity/morta lity 11/17/2023 Counseling, unspecified (ICD-10 - Z71.9) 05/03/2024 Counseling, unspecified (ICD-10 - Z71.9) Need 2 out of 3 Sections from A-C Section A) Problems (only need one from below) One acute or uncomplicated illness/injury Section B) Data (at least one of the following categories in this section) Category 1: (Choose 2 of the following): Order unique tests Section C) Risk Document low risk of morbidity/morta lity 11/17/2023 Other problems related to lifestyle (ICD-10 - Z72.89) 05/03/2024 Other problems related to lifestyle (ICD-10 - Z72.89) Need 2 out of 3 Sections from A-C Section A) Problems (only need one from below) One acute or uncomplicated illness/injury Section B) Data (at least one of the following categories in this section) Category 1: (Choose 2 of the following): Order unique tests Section C) Risk Document low risk of morbidity/morta lity 05/03/2024 HIV Screening (ICD-10 - Z11.4) Need 2 out of 3 Sections from A-C Section A) Problems (only need one from below) One acute or uncomplicated illness/injury Section B) Data (at least one of the following categories in this section) Category 1: (Choose 2 of the following): Order unique tests Section C) Risk Document low risk of morbidity/morta lity 11/17/2023 Encounter for screening for human immunodeficiency virus [HIV] (ICD-10 - Z11.4) 11/17/2023 Encounter for screening for other viral diseases (ICD-10 - Z11.59) 05/03/2024 Encounter for screening for other viral diseases (ICD-10 - Z11.59) Need 2 out of 3 Sections from A-C Section A) Problems (only need one from below) One acute or uncomplicated illness/injury Section B) Data (at least one of the following categories in this section) Category 1: (Choose 2 of the following): Order unique tests Section C) Risk Document low risk of morbidity/morta lity Plan Of Treatment No Information Insurance Providers Payer Name Payer Address Payer Phone Subscriber Number Group Number Insured Name Patient Relationship to Insured Coverage Start Date Coverage End Date [facility] [address] [place], [place] [id number] Mckinley Gregg Self - patient is the insured Medical (General) History Surgical History Surgery Date(Month/Year)
--- OUTSIDE RECORDS SUMMARY | 2024-08-07 13:54 | XMS_ITS ---
Author Organization [facility] Address [address] [place] [address] Care Team Providers Care Instrument And Controls Technician Name Role Phone Chetan Echavarria MD Primary Care Provider Teresa Benz Unavailable [phone] Allergies No Known Allergies REASON FOR VISIT [...] 025 Encounters Encounter Location Date Provider Diagnosis [facility] [address] [place] [address] 06/07/2024 Teresa Hadley Achilles tendinitis of left [...] Reason: Provider Name:Teresa krueger, 08/18/2024 01:30:00 PM, [address] [place] [address], [phone], Progress Notes * Socorro GARCIAOB:1975 (49 yo F)Acc No.[id number]:06/07/2024 Progress Notes Patient:?Mckinley GARCIA Provider:?Teresa Hadley DPM :1975???Age:49 Y???Sex:Female D ate:06/07/2024 Address:[address] [place], [place] [phone] Pcp:Chetan Echavarria MD Subjective: * Chief Complaints: [...] no. ?Marital status: . ?Occupation: Works Full-time- [employer] / [employer]. ???Drug/Alcohol:?AUDIT-C (Standard)?Did you have a drink [...] posterior and posterior/superior heel present, LEFT foot,Neg [place], Equinus contracture knee extended.?X-Rays - IMAGING REPORT: ?Clinical Indication(s):? Evaluate for Fracture, Evaluate Biomechanical Deformity.?Views:?3 views of Foot, LAT, LO, MO, LEFT??Taken by trained?Podiatric Respite Provider (?EF).?Findings:?normal bone and soft tissue density consistent [...] ray : Foot, left 3V * Procedure Codes:?70901 X-RAY EXAM OF LEFT FOOT 3V, Modifiers: [...] Interfil injection therapy, as well as surgical Bumpass/Calcanectomy- tendon debridement surgical procedures if needed. Recommendations [...] Hadley DPM Date:? Generated for Gwendolyn shultz/Agueda/Dave on:?08/07/2024 01:53 PM EDT History and Physical Notes * HPI [...] LO, MO, LEFT Taken by trained Podiatric Respite Provider ( EF) Clinical Indication(s): Evaluate for Fra cture, Evaluate Biomechanical Deformity Heel Pain INSPECTION: Pain on palpatio n to Posterior Superior Aspect Calcaneus, Pain on palpation to Achilles tendon/bursa with inflammation and swelling present, Prominent posterior and posterior/superior heel present, LEFT foot, Neg [place], Equinus contracture knee extended
--- OUTSIDE RECORDS SUMMARY | 2024-08-07 13:54 | XMS_ITS | Patient Health Record ---
Author Organization [facility] [place] Address [address] [facility] [place] [address] Care Team Providers Care Rabbler Name Role Phone Chetan Echavarria MD Primary Care Provider Teresa Benz Unavailable [phone] Allergies No Known Allergies Reason For Referral [...] 06/07/2024 Encounters Encounter Location Date [facility] [address] [place] [address] 06/07/2024 Teresa Hadley Achilles tendinitis of left [...] Krueger Crys krueger, 08/18/2024 01:30:00 PM, [address] [place], [address], Insurance Providers Payer Name Payer Address Payer Phone Subscriber Number Group Number Insured Name Patient Relationship to Insured Coverage Start Date Coverage End Date [facility] [address] [place] [address] [id number] Loco Gregg Spouse - patient is the spouse of the insured Medical (General) History Medical History History ICD Code Chicken pox Warts covid-19 Surgical History Surgery Date(Month/Year)
--- OUTSIDE RECORDS SUMMARY | 2024-08-07 13:54 | XMS_ITS ---
Author Organization [facility] Address [address] [place] [phone] Care Team Providers Care Organizational Development Manager Name Role Phone LINDA VELIZ Unavailable [phone] REASON FOR VISIT Routine Testing Social History Sex Assigned At : Social History Observation Description Sex Assigned At Female Encounters Encounter Location Date Provider Diagnosis [facility] [address] [place], [place] [phone] 11/08/2023 LINDA VELIZ Plan Of Treatment No Information Progress Notes * Vidal GARCIAAndreiOB:1975 (49 yo F)Acc No.[id number]:11/08/2023 Progress Notes Patient:?TIPCATHY Mckinley Provider:?LINDA VELIZ NP :1975???Age:48 Y???Sex:Female D ate:11/08/2023 Address:[address] [place] [id number] Subjective: * Chief Complaints: * ???1. Routine Testing. * Medical History:? Objective: * Vitals:? Assessment: Plan: * Treatment: * Billing Information: * Visit Code:? * Procedure Codes:? * Electronic signature of HUDSON VELIZ NP on 08/07/2024 at 01:53 PM EDT Sign off status: Pending * Provider:?LINDA VELIZ NP Date:?10/20 Generated for Zohaibi ng/Faxing/eTransmitting on:?08/07/2024 01:53 PM EDT
--- OUTSIDE RECORDS SUMMARY | 2024-08-07 13:54 | XMS_ITS | Data Portability ---
Author Organization [place] - [facility], Allergy Address [address] [place] [address] Care Team Providers Care Zipper Slide Attacher Name Role Phone MALGORZATA GARDNER Primary Care [...] removal, or sooner if any concerns arise. [email or web address] Not available 05/18/2024 09:06:10 Plan of Treatment [...] Organization Details Recorded Time Dizziness and giddiness 620027624 Active 2018 Dizziness and giddiness ; Note: Date Diagnosed : 06/15/2018 3:33 PM (R42) Not Available [facility] 4 02:49:01 Acute eczematoi d otitis externa 65548849 Active 2020 Acute eczematoi d otitis externa, left ear; Note: Date Diagnosed : 04/02/2020 9:05 AM (H60.542) Not Available [facility] 4 02:49:02 Otitis externa of left ear 51289467517 22669 Active 2018 Other otitis externa, left ear; Note: Date Diagnosed : 12/15/2018 8:56 AM (H60.8X2) Not Available [facility] 4 02:49:01 Impacted cerumen in right ear 85844967933 20851 Active 2020 Impacted cerumen, right ear; Note: Date Diagnosed : 09/03/2020 11:44 AM (H61.21) Not Available [facility] 4 02:48:58 Impacted cerumen of bilateral ears 20875430733 30742 Active 2018 Impacted cerumen, bilateral ; Note: Date Diagnosed : 12/15/2018 8:54 AM (H61.23) Not Available [facility] 4 02:49:01 Benign paroxysma l positiona l vertigo 306648398 Active 2023 ESPERANZA MISTRY MD [address] [facility],[place] [address], [facility] [place], [address] , [facility] - [facility] 4 12:18:08 Problem Notes None recorded. Procedures Surgical History Date Name Laterality Status Provider Name and Address Organization Details Recorded Time 5 Cerumen removal without microscope bilat completed HUGO MANDUJANO PA-C [address] [facility],[place] [address], [place], [address], [facility] - [facility] 05/18/2024 09:05:55 4 Cerumen removal without microscope bilat completed HUGO MANDUJANO PA-C [address] [place] [address], [phone], [facility] - [facility] 11/15/2023 09:04:30 Imaging Results Imaging Date Name Status LastModified by Organiz ation Details LastModified Time 06/15/2018 imaging/diag nostic result completed [email or web address] Information not available 11/09/2023 20:12:02 Procedure Notes None recorded. Medical Equipment None Reported. Medications Name Sig Start Date Stop Date Status Note LastModified by Organization Details LastModified Time clotrimaz ole 10 mg hillary 1 hillary in mouth 12/27 completed Medicatio n ID: [id number] Du ration Value: 14 Prescrib ed By Name: Katty more MD Brand Name: clotrimaz ole Send Method: E-Prescri bed Subs Allowed: subs OK Medica tionGener icName: clotrimaz ole Not Available Not Available Not Available clotrimaz ole-betam ethasone 1 %-0.05 % lotion a small amount 2020 active Medicatio n ID: [id number] Du ration Value: 14 Prescrib ed By [...] topical cream 2021 active Medicatio n ID: [id number] Du ration Value: 14 Brand Name: clotrimaz ole-betam ethasone Send Method: E-Prescri bed Subs Allowed: subs OK Specia l Instructi on: Apply a small amount with fingertip to affected ear twice daily as needed for itching M edication GenericNa me: clotrimaz ole-betam ethasone Not Available Not Available Not Available clotrimaz ole 1 % topical solution 2018 active Medicatio n ID: [id number] Pr escribed By Name: Katty more MD [...] 5 drop 2019 active Medicatio n ID: [id number] Pr escribed By Name: Katty more MD Brand Name: DermOtic Oil Send Method: E-Prescri bed Subs Allowed: subs OK Medica tionGener icName: DermOtic Oil Not Available Not Available Not Available Vitals Date Recorded Body height Body mass index (BMI) Body weight Provider Name and Address Organization Details Last Updated DateTime 11/15/2023 167.64 cm 37.1 kg/m2 188719.25 g Aura Dutta [place] - [facility] 11/15/2023 09:19:36 Date Recorded Body height Body mass index (BMI) Body weight Provider Name and Address Organization Details Last Updated DateTime 05/18/2024 167.64 cm 37.1 kg/m2 201326.25 g Lian Gannon [facility] 05/18/2024 09:13:14 Social History None recorded. Functional Status None recorded. Mental Status None recorded. Family History Nothing Reported. Medical History No medical history recorded. Gynecological HistoryNo gynecological history recorded. Obstetrics History GPAL:G 0 P 0 0 0 0 Past Encounters Encounter ID Performer Location Encounter Start Date Encounter Closed Date Diagnosis/Indication Diagnosis SNOMED-CT Code Diagnosis ICD10 Code Diagnosis Note [id number] HUGO MANDUJANO PA-C [facility] [address] [address] 11/15/2023 09:02:24 11/15/2023 09:38:46 Impacted cerumen of bilateral ears [id number] 342733 H61.23 Benign par oxysmal positional vertigo 389333551 H81.10 [id number] HUGO MANDUJANO PA-C [facility] [address] [place] [address] 05/18/2024 08:57:43 05/18/2024 10:01:06 Impacted cerumen of bilateral ears 4838510060 535179 H61.23 Health Concerns Section Related Observation LastModified by Organization Detai ls LastModified Time None Recorded Concern Status LastModified by Organization Details LastModified Time None Recorded Advance Directives Directive None Recorded Payers Insurance Date Sequence Insurance Name Policy Number Policy Alonso Covered Member ID Alonso Member ID Guarantor Name 05/18/2024 1 [facility] [id number] Mckinley Gregg [id number] Mckinley Gregg Notes Date Note Type Note Provider Name and Address Organization Details Recorded Time 11/15/2023 text/html 48-year-old female presents for cerumen removal. Had an episode of vertigo when she woke up in the morning with positional changes of the head. Symptoms are improving. No prior vestibular therapy. Denies otalgia, otorrhea, or changes in her hearing. ESPERANZA WATSON MD [address] [place] [address], [phone], [facility] 11/15/2023 12:18:24 05/18/2024 text/html 49-year-old female presents for cerumen removal. No concerns today. KATTY RUANO MD [address] [place] [address], [phone], [facility] 05/18/2024 13:34:27 OBGyn Episode No OBEpisode recorded.
== END 2024-08-07 13:50 | disposition home or self-care (01) ==
LOC: HO.HMGCX 13:49
PROVIDERS: PCP Internal Medicine; Visit Provider Advanced Practice Midwife
DX: D21.9 Benign neoplasm of connective and other soft tissue, unspecified (principal)
CPT/HCPCS: 76830; 76856

== ENCOUNTER → 2024-08-07 13:57 | Outpatient (BNV) | payer OTHER, SELFPAY | PROVIDERS: PCP Internal Medicine; Visit Provider Radiology Diagnostic Radiology | DX: D25.9 Leiomyoma of uterus, unspecified (principal); Z97.5 Presence of (intrauterine) contraceptive device | CPT/HCPCS: 76830; 76856 ==

== ENCOUNTER 2024-08-29 12:48 | Outpatient (AMB) | payer OTHER, SELFPAY ==
--- NOTE | 2024-08-29 12:49 | A.OFFVIS_ITS ---
Intake Visit Reasons: TV ultra sound follow up ok ángel De Leon Laundry Washer: Laundry Washer Present Allergies No Known Allergies Allergy (Verified 07/19/24 08:19) Is last menstrual period known: Yes HPI Comments Details: Tele Health Visit Total time I personally spent on visit and management today: 15 minutes. Time spent included review of pertinent office notes in the electronic health record; review of laboratory and imaging results; review of personal family medical history; discussing diagnosis and plan of care with the patient; documenting the encounter in the EMR. Patient presents to discuss: History of fibroids follow up ultrasound results. No concerns today. Has a Mirena IUD in place. [facility] IUD (intrauterine device) in place Fibroid Surgical History Hx of section Family History Maternal Grandmother Breast cancer Social History Alcohol intake: current Alcohol intake frequency: a few times a month Patient Tobacco Use Status: Never used Tobacco Sexual orientation: Straight/Heterosexual Gender identity: Female Female Reproductive History Menstrual Age of Menarche: 16 Review of Systems Const All systems reviewed & are unremarkable except as noted in HPI and below Endo Reports no additional complaints Physical Exam Const General: cooperative, healthy appearing and no acute distress Psych Appearance: well kempt Attitude: cooperative Thought process: Normal thought process present Telehealth Telehealth Location of provider rendering services: practice address Location of patient: address on file Patient Identification confirmed using: Name, : Yes Telehealth method: video Patient verbally consented to treatment: Yes Patient verbally consented to billing insurance company: Yes Patient informed of any privacy concerns related to visit: Yes Results Reviewed Results Reviewed: [facility] [place] [address] Ultrasound Report Signed Patient: Mckinley Gregg MR#: [id number] : 1975 Acct:[id number] Age/Sex: 49 / F ADM Date: 08/07/24 [facility] Dr: Joya Bender CNM Ordering Physician: Joya Bender CNM Date of Service: 08/07/24 Procedure(s): US pelvic and transvaginal Accession Number(s): [id number] cc: MALGORZATA GARDNER MD; Joya Bender CNM~ EXAMINATION: US PELVIS TRANSABDOMINAL AND TRANSVAGINAL HISTORY: D21.9 - Benign neoplasm of connective and other soft tissue, unspecified COMPARISON: Comparison is made with the prior examination dated 06/21/2023. TECHNIQUE: Transabdominal and endovaginal real-time 2D valdez-scale ultrasound was performed. FINDINGS: Uterus: The uterus is normal in size, measuring 10.2 x 5.5 x 6.3 cm. Myometrium has a normal echotexture. Again seen is a right-sided fibroid measuring 1.6 x 1.5 x 1.8 cm (previously 1.3 x 1.1 x 1.4 cm). Endometrium: The endometrial stripe measures 6 mm in thickness. An IUD is noted in appropriate position in the endometrial cavity. Right ovary: The right ovary measures 3.3 x 2.0 x 1.8 cm. The right ovary is normal in size and echotexture. Left ovary: The left ovary measures 3.8 x 2.6 x 2.9 cm. The left ovary is normal in size and echotexture. Pelvic fluid: none. US/US pelvic and transvaginal IMPRESSION: 1.6 x 1.5 x 1.8 cm right-sided uterine fibroid. IUD in appropriate position in the endometrial cavity. Electronically signed by: Carmelo Zhu MD 08/07/2024 02:33 PM EDT Dictated By: Carmelo Zhu MD Signed By: <Electronically signed by Carmelo Zhu MD in OV> 08/07/24 1433 DD/ 1402 TD/TT: 08/07/24 1422 Supervisor Matrix: Assessment & Plan Assessment & Plan (1) Fibroid: Code(s): D21.9 - Benign neoplasm of connective and other soft tissue, unspecified Category: Medical Plan: Counseled re: Leiomyoma: common pelvic neoplasm. Differential diagnosis-may include but not limited to- leiomyosarcoma which is a rare uterine sarcoma 3- 7/100,000, difficult to distinguish from fibroids on ultrasound from uterine sarcoma's. Unlikely any single test will have a highly positive predictive value. Hysterectomy is not recommended for sole purpose of excluding malignant neoplasm. Consult for surgical exploration, medical treatment, other treatments, verses expectant management, pros and cons, risks and benefits. Expectant management follow up in 6 months, then yearly for stability. Patient prefers to proceed with expectant management. Referral to MD if indicated for level of care if indicated Report any AUB, pelvic pressure, bloating, or pain. . (2) Encounter to discuss test results: Code(s): Z71.2 - Person consulting for explanation of examination or test findings Plan Discussed: Ultrasound findings- IMPRESSION: 1.6 x 1.5 x 1.8 cm right-sided uterine fibroid. IUD in appropriate position in the endometrial cavity. The patient expressed understanding and agreement with the plan of care. All of her questions and concerns were addressed to the best of my ability. Follow up annual exam scheduled. This note is constructed using voice recognition software. While every effort has been made to ensure accuracy, insurance appraiser errors may have been included. Coding Level of Care Code Tele Est Pt Level 3 (50209) Diagnoses Fibroid D21.9 Encounter to discuss test results Z71.2
--- OUTSIDE RECORDS SUMMARY | 2024-08-29 14:58 | XMS_ITS ---
Author Organization [facility] Address [address] [place] [phone] Care Team Providers Care Farm Machinery Erector Name Role Phone LINDA VELIZ Unavailable [phone] REASON FOR VISIT Routine Testing Social History Sex Assigned At : Social History Observation Description Sex Assigned At Female Encounters Encounter Location Date Provider Diagnosis [facility] [address] [place], [place] [phone] 11/08/2023 LINDA VELIZ Plan Of Treatment No Information Progress Notes * RADHA VidalAndreiOB:1975 (49 yo F)Acc No.[id number]:11/08/2023 Progress Notes Patient:?TIPCATHY Mckinley Provider:?LINDA VELIZ NP :1975???Age:48 Y???Sex:Female D ate:11/08/2023 Address:[address] [place] [phone] Subjective: * Chief Complaints: * ???1. Routine Testing. * Medical History:? Objective: * Vitals:? Assessment: Plan: * Treatment: * Billing Information: * Visit Code:? * Procedure Codes:? * Electronic signature of HUDSON VELIZ NP on 08/29/2024 at 02:57 PM EDT Sign off status: Pending * Provider:?LINDA VELIZ NP Date:?10/20 Generated for Printi ng/Faxing/eTransmitting on:?08/29/2024 02:57 PM EDT
== END 2024-08-29 13:33 | disposition home or self-care (01) ==
LOC: HO.HWS 12:48
PROVIDERS: PCP Internal Medicine; Visit Provider Advanced Practice Midwife
DX: D21.9 Benign neoplasm of connective and other soft tissue, unspecified (principal); Z71.2 Person consulting for explanation of examination or test findings
CPT/HCPCS: 99213

== ENCOUNTER → 2024-08-29 12:48 | Outpatient (BNVA) | payer OTHER, SELFPAY | PROVIDERS: PCP Internal Medicine; Visit Provider Advanced Practice Midwife ==